=== PATIENT | female | born 1965 | race African-American/Black ===

== ENCOUNTER 2017-09-02 02:18 | Emergency (ER) | payer BC ==
[2017-09-02] MEDS ORDERED: Ibuprofen 800 MG TAB ONE (04:16)
--- NOTE | 2017-09-02 08:46 | RAD ---
LEFT HIP 2 VIEWS: Date: 09/02/17 HISTORY: Left hip pain. COMPARISON: None. FINDINGS: No displaced fracture or malalignment. Left obturator ring appears to be intact. Exam is limited by underpenetration. IMPRESSION: No displaced fracture or malalignment. POS: PASTORA
== END 2017-09-02 04:45 | disposition home or self-care (01) ==
LOC: ERS 02:18
DX: M25.552 Pain in left hip (principal); I10 Essential (primary) hypertension; F31.9 Bipolar disorder, unspecified; F41.9 Anxiety disorder, unspecified; Z79.82 Long term (current) use of aspirin; Z87.891 Personal history of nicotine dependence; Z79.899 Other long term (current) drug therapy

== ENCOUNTER 2018-08-23 19:14 | Observation (INO) | payer BC ==
[~2018-08-23 19:14] MED LIST: ISOVUE-370 76%-LOCM 1 ML ONE
[2018-08-23] MEDS ORDERED: Nitroglycerin 0.4 MG TAB (25 Tab Bottle) ONE (19:56)
[2018-08-23 20:05] LABS: #Eosinphils 0.1 thou/uL (0.0-0.7); #Lymphocytes 2.1 thou/uL (1.20-3.40); #Monocytes 0.6 thou/uL (0.11-0.59); #Neutrophils 7.4 thou/uL (1.40-6.50); %Basophils 0.4 % (0.0-1.0); %Eosinophils 1.4 % (0.0-10.0); %Lymphocytes 20.5 % (21.0-51.0); %Neutrophils 71.7 % (42.0-75.0); Hemoglobin 10.7 g/dL (12.0-16.0); Mean Corpuscular HGB CONC 31.2 g/dL (32.0-36.0); Mean Corpuscular Hemoglobin 23.9 pg (27.0-31.0); Mean Corpuscular Volume 76.5 fL (78.0-98.0); Mean Platelet Volume 8.2 fL (7.4-10.4); Platelet Count 403 thou/uL (130-400); RBC Distribution Width 15.8 % (11.5-14.5); Red Blood Cell (RBC) Count 4.48 mill/uL (4.20-5.40); White Blood Cell (WBC) Count 10.3 thou/uL (4.8-10.8)
[2018-08-23 20:29] LABS: ALT (SGPT) 13 U/L (8-55); AST (SGOT) 14 U/L (5-34); Albumin 3.9 g/dL (3.5-5.0); Alkaline Phosphatase 80 U/L (40-150); Anion Gap 9 mmol/L (10-20); BUN (Urea Nitrogen) 16 mg/dL (9.8-20.1); Bilirubin, Total 0.3 mg/dL (0.2-1.2); Calc. Creatinine Clearance 0 mL/min (70-130); Calcium 9.2 mg/dL (7.8-10.44); Carbon Dioxide 29 mmol/L (22-29); Chloride 105 mmol/L (98-107); Estimated GFR-MDRD 76; Globulin 3.8 g/dL (2.4-3.5); Glucose 95 mg/dL (70-105); Potassium 4.4 mmol/L (3.5-5.1); Protein, Total 7.7 g/dL (6.0-8.3); Sodium 139 mmol/L (136-145)
[2018-08-23 20:33] LABS: Troponin I Less than 0.010 ng/mL (< 0.028)
--- NOTE | 2018-08-23 20:49 | RAD ---
CHEST ONE VIEW: HISTORY: Shortness of breath x2 days. Chest pain. COMPARISON: None. FINDINGS: Normal cardiac silhouette. Pulmonary vessels are slightly prominent. Costophrenic angles are clear. No consolidation or mass. No pneumothorax or osseous abnormalities. IMPRESSION: No acute cardiopulmonary process. POS: PPP
--- NOTE | 2018-08-23 21:40 | CT ---
CTA THORAX UTILIZING IV CONTRAST AND 3D REFORMATTED IMAGING: INDICATIONS: Chest pain with shortness of breath. Elevated D-dimer. FINDINGS: The timing of the contrast bolus limits evaluation of the lobar and segmental branches of the pulmona ry arterial tree. No definite central pulmonary embolus is evident. No right heart dysfunction is g rossly evident. The visualized aspect of the aorta and great vessels appear within normal limits. There is a calcified granuloma within the right upper lobe. No confluent air space opacity is eviden t. No pleural effusion is demonstrated. No pneumothorax is noted. No enlarged lymph nodes are present. There is mild hypertrophy of both adrenal glands, left greater than right. There is a 3.1 cm cyst wi thin the left mid kidney that has intervally enlarged from a comparison in 2010. No acute osseous abnormality is evident. IMPRESSION: 1. No central pulmonary embolus demonstrated. Limitations of exam, as above. 2. Findings of prior granulomatous disease. 3. Interval enlargement of left mid renal cyst. Follow-up nonemergent renal ultrasound may be helpf ul to fully characterize this cystic abnormality. This is incompletely visualized on the current CT. 4. Slight hypertrophy of the adrenal glands, left greater than right. 5. Other chronic findings as above. POS: OSVALDO
[2018-08-23 23:43] VITALS: BMI 54.2
[2018-08-24] MEDS ORDERED: Acetaminophen 325 MG TAB PO PRN (00:03)
[2018-08-24 00:18] LABS: Troponin I Less than 0.010 ng/mL (< 0.028)
[2018-08-24 02:52] LABS: Troponin I Less than 0.010 ng/mL (< 0.028)
[2018-08-24] MEDS ORDERED: Ondansetron ODT 4 MG TAB PO PRN (04:01)
[2018-08-24] MEDS ORDERED: Ondansetron HCl/PF 4 MG/2 ML Vial IVP PRN (04:01)
[2018-08-24] MEDS: Furosemide 40 MG/4 ML VIAL SLOW IVP SCH ×2 (08:44→14:27)
[2018-08-24] MEDS ORDERED: Enoxaparin Sodium 40 MG/0.4 ML SYRINGE SC SCH (09:00)
[2018-08-24] MEDS ORDERED: Lisinopril 2.5 MG TAB PO SCH (09:00)
--- NOTE | 2018-08-24 09:59 | HP ---
CHIEF COMPLAINT: Shortness of breath. HISTORY OF PRESENT ILLNESS: This is a 53-year-old female with past medical history of hypertension and hepatitis C, presenting with a chief complaint of shortness of breath for 2 days. Per the patient, she has been having severe shortness of breath which is associated with some chest tightness and the patient states that with ambulation she gets shortness of breath, on lying down she gets shortness of breath. The patient states that she has been getting shortness of breath more constantly and even sometimes she gets shortness of breath from her sleep. The patient has to use 2 pillows to sleep and the patient says that this shortness of breath and chest tightness have worsened and that prompted the ED visit. Of note, the patient is a business operations specialist and patient states that she needs to take care of this shortness of breath so that she can be able to do her job. The patient admits to recent travel. Denies any recent sick contacts. The patient is a former smoker and drinker. The patient admits shortness of breath, bilateral lower extremity edema, chest tightness, but denies headaches, fever, palpitations, abdominal pain, and weakness. REVIEW OF SYSTEMS: Positive for chills, chest tightness, shortness of breath. PAST MEDICAL HISTORY: Hepatitis C, hypertension. FAMILY HISTORY: Reviewed and noncontributory. PAST SURGICAL HISTORY: Liver biopsy, hysterectomy. PSYCHIATRIC HISTORY: The patient has anxiety, bipolar and depression. SOCIAL HISTORY: The patient is a business operations specialist. The patient is a former smoker, quit more than 10 years ago. The patient drinks occasionally. The patient denies any illicit drug use. ALLERGIES: No known drug allergies. CURRENT MEDICATIONS: Aspirin, hydrochlorothiazide, losartan and Lasix 20 mg. PHYSICAL EXAMINATION: VITAL SIGNS: Blood pressure is 214/90, pulse of 87, respiratory rate of 17, temperature of 98.3, O2 sat of 99. GENERAL: The patient is a morbidly obese female lying in bed, does not appear to be in any acute distress. HEENT: Normocephalic, atraumatic. Pupils are equally round and reactive to light. Extraocular movements are intact. No scleral icterus. No conjunctival pallor. Mucous membranes are moist. NECK: Large neck circumference. Trachea is midline. No meningeal signs. LUNGS: Clear to auscultation bilaterally. No wheezing, no rales, no rhonchi is appreciated. CARDIOVASCULAR: Positive S1 and S2, regular rate and rhythm. No murmurs, no gallops or rubs appreciated. ABDOMEN: Obese abdomen, soft, nontender, nondistended, no masses. Positive bowel sounds in all quadrants. EXTREMITIES: The patient has 5/5 upper extremity strength, good pulses at the radial pulses. Lower extremities; the patient has 2+ edema noted. Has 5/5 upper extremity strength and good pulses. NEUROLOGIC: Cranial nerves II-XII grossly intact. No neurologic deficits noted. SKIN: Warm, dry and intact. PSYCHIATRIC: Normal affect, alert and oriented x3. EKG; sinus rhythm with rate of 94. Chest x-ray was negative and chest CT was also negative for emboli. ED COURSE: The patient received nitroglycerin and aspirin. LABORATORY DATA: WBC 10.3, hemoglobin 10.7, hematocrit is 34.3, platelet is 403. D-dimer was 0.68. Sodium 139, potassium 4.4, chloride 105, carbon dioxide of 29, anion gap of 9, creatinine of 0.94, glucose 95, AST is 14, ALT is 13. BNP is 16.7. Troponin is negative x3. ASSESSMENT AND PLAN: 1. This is a 53-year-old female being admitted for shortness of breath due to newly onset congestive heart failure. At this point, we have ordered for cardiac rehab. We are going to treat the patient for congestive heart failure. We have ordered for echo with cardiology on consult. We will follow up with their recommendations. 2. Hypertension. Continue the patient on her home medications and monitor blood pressures closely. 3. Hepatitis C, currently stable. We will monitor the patient. 4. Deep venous thrombosis and gastrointestinal prophylaxis. [facility]
[2018-08-24 16:10] VITALS: BP 130/82; TEMP 98.4
--- NOTE | 2018-08-24 16:50 | NM ---
RADIONUCLIDE STRESS ONLEY MYOCARDIAL PERFUSION SCAN WITH CT ATTENUATION CORRECTION AND SPECT IMAGING WITH LEFT VENTRICULAR WALL MOTION EVALUATION AND EJECTION FRACTION: HISTORY: Chest pain FINDINGS: Adenosine protocol. There is homogeneous uptake of radiotracer throughout the left ventricular myocar dium on the stress images. No focal perfusion defect. QGS analysis of gated SPECT images shows no focal wall motion abnormalities. Ejection fraction estima saúl at 68%. IMPRESSION: 1. Normal myocardial perfusion scan. 2. Normal LVEF. POS: PASTORA
--- NOTE | 2018-08-24 17:40 | PDOC.EVN ---
Event Note - Event Note Event Note: I have examined, discussed and reviewed all relevant hx, labs, x-rays and stress test results with Radha HUANG. Agree with discharge plans to home. No new recommendations for medical therapy or adjustments. Please see dictated discharge summary for details.
--- NOTE | 2018-08-25 01:51 | DIS ---
DATE OF ADMISSION: 08/23/2018 DATE OF DISCHARGE: 08/24/2018 PRIMARY CARE PHYSICIAN: Dr. Freire. CONSULTATIONS: None. PROCEDURES: Stress test, Cardiolite with nuclear med, negative with an EF of 68 %. Echo with EF of 55% to 60%, mild mitral valve and tricuspid regurgitation. A CTA of the chest, which did not demonstrate any PE. Left interval enlargement of a mid-renal cyst recommend the renal ultrasound to better clarify on an outpatient basis. Patient also had a chest x-ray with no acute findings. REVIEW OF SYSTEMS: Patient had some chest tightness and shortness of breath on admission but reports it has resolved. Denies any complaints during my exam this morning. PHYSICAL EXAMINATION GENERAL: Patient is lying in bed, nontoxic and in no acute distress. HEENT: Normocephalic, atraumatic. Pupils are equally round and reactive to light. Extraocular movements are intact. Mucous membranes are moist. NECK: Large neck circumference. Trachea is midline. LUNGS: Clear to auscultation bilaterally. No wheezing, rales, rhonchi. CARDIOVASCULAR: Positive S1, S2. Regular rate and rhythm. No murmurs, gallops , or rubs. ABDOMEN: Obese abdomen, soft, nontender, nondistended, no masses. Positive bowel sounds in all quadrants. EXTREMITIES: Patient had 5/5 upper extremity strength. Good pulses on the radial pulses. Lower extremities: Patient has 2+ edema noted to BLE , has 5/5 lower extremity strength and good pulses. SKIN: Warm, dry, and intact. PSYCHIATRIC: Normal affect. Alert and oriented x3. EKG sinus rhythm with a rate of 94. HOSPITAL COURSE: A 53-year-old female, nontoxic appearing. Reports shortness of breath x2 days with some chest tightness which prompted her presentation to the ER. Reports shortness of breath lying down and also reports mild shortness of breath with exertion. Reports mild bilateral pedal edema and is worse in the evenings when she gets off work. 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 O2 sats are 100% on room air while hospitalized. Patient is able to ambulate here without assistance. Denies any dizziness, shortness of breath or chest pain while hospitalized Patient is feeling better and was given her usual Lasix dose this morning. In light of her stress test findings and unremarkable lab work, case discussed with Dr. Day and agrees with plan for patient to be discharged home. Patient was instructed to follow up with Dr. Freire in 1 week. DISCHARGE MEDICATIONS: Continue aspirin 81 mg p.o. daily, Lasix 20 mg p.o. q.p.m., losartan/hydrochlorothiazide 1 tablet p.o. q.a.m., potassium chloride 10 mEq p.o. q.p.m. CONDITION: Stable. DISPOSITION: To home. REFERRAL: Dr. Freire within 1 week. [facility]
--- NOTE | 2018-08-29 13:25 | EKG ---
Test Reason : Blood Pressure : / mmHG Vent. Rate : 094 BPM Atrial Rate : 094 BPM P-R Int : 136 ms QRS Dur : 072 ms QT Int : 350 ms P-R-T Axes : 040 018 018 degrees QTc Int : 437 ms Normal sinus rhythm Cannot rule out Anterior infarct , age undetermined Abnormal ECG Confirmed by DIA DICKINSON ([id number]), deputy editor in chief HEIDY RAI ([id number]) on 08/29/2018 1:25:15 PM Referred By: Confirmed By:DIA DICKINSON
== END 2018-08-24 18:27 | disposition home or self-care (01) ==
LOC: ERS 19:14 → 2SW 23:23
PROVIDERS: ADMIT Internal Medicine; ATTEND Internal Medicine
DX: I11.0 Hypertensive heart disease with heart failure (principal); I50.9 Heart failure, unspecified; B19.20 Unspecified viral hepatitis C without hepatic coma; Z79.82 Long term (current) use of aspirin; Z79.899 Other long term (current) drug therapy
CPT/HCPCS: 36415; 71045; 71275; 78452; 80053; 83880; 84484; 85025; 85379; 93005; 93017; 93306; 96372; 96374; 96376; A9500; G0378; J0153; J1650; J1940; J7620

== ENCOUNTER 2019-05-28 08:42 | Outpatient (CLI) | payer BC, OTHER ==
--- NOTE | 2019-05-28 09:24 | MMO ---
Bilateral MAMMO Bilat Screen [facility]. CLINICAL HISTORY: Patient is 53 years old and is seen for screening. The patient has no family history of breast cancer. The patient has no personal history of cancer. The patient has a history of right Excisional Biopsy in ? - benign. VIEWS: The views performed were: bilateral craniocaudal with tomosynthesis and bilateral mediolateral oblique with tomosynthesis. FILMS COMPARED: The present examination has been compared to prior imaging studies performed at [facility] on 03/21/2008 and 03/04/2016. MAMMOGRAM FINDINGS: There are scattered fibroglandular densities. There are no suspicious masses, suspicious calcifications, or new areas of architectural distortion. IMPRESSION: THERE IS NO MAMMOGRAPHIC EVIDENCE OF MALIGNANCY. A ROUTINE FOLLOW-UP MAMMOGRAM IN 1 YEAR IS RECOMMENDED. THE RESULTS OF THIS EXAM WERE SENT TO THE PATIENT. ACR BI-RADS Category 1 - Negative MAMMOGRAPHY NOTE: 1. A negative mammogram report should not delay a biopsy if a dominant of clinically suspicious mass is present. 2. Approximately 10% to 15% of breast cancers are not detected by mammography. 3. Adenosis and dense breasts may obscure an underlying neoplasm. Reported by: KT ESTRADA MD Electonically Signed: [id number]
== END 2019-05-28 08:43 | disposition home or self-care (01) ==
LOC: BICMAMMO 08:42
PROVIDERS: ATTEND Family Medicine
DX: Z12.31 Encounter for screening mammogram for malignant neoplasm of breast (principal)
CPT/HCPCS: 77063; 77067

== ENCOUNTER 2020-08-16 16:38 | Outpatient (CLI) | payer BC ==
--- NOTE | 2020-08-17 08:08 | MMO ---
Bilateral MAMMO Bilat Screen [facility]. CLINICAL HISTORY: Patient is 55 years old and is seen for screening. The patient has no family history of breast cancer. The patient has no personal history of cancer. The patient has a history of right Excisional Biopsy in ? - benign. VIEWS: The views performed were: bilateral craniocaudal with tomosynthesis and bilateral mediolateral oblique with tomosynthesis. FILMS COMPARED: The present examination has been compared to prior imaging studies performed at [facility] on 03/21/2008, 03/04/2016 and 05/28/2019. This study has been interpreted with the assistance of computer-aided detection. MAMMOGRAM FINDINGS: There are scattered fibroglandular densities. There are stable benign appearing calcifications seen in both breasts. There are no suspicious masses, suspicious calcifications, or new areas of architectural distortion. IMPRESSION: THERE IS NO MAMMOGRAPHIC EVIDENCE OF MALIGNANCY. A ROUTINE FOLLOW-UP MAMMOGRAM IN 1 YEAR IS RECOMMENDED. THE RESULTS OF THIS EXAM WERE SENT TO THE PATIENT. ACR BI-RADS Category 2 - Benign finding MAMMOGRAPHY NOTE: 1. A negative mammogram report should not delay a biopsy if a dominant of clinically suspicious mass is present. 2. Approximately 10% to 15% of breast cancers are not detected by mammography. 3. Adenosis and dense breasts may obscure an underlying neoplasm. Reported by: DO ESTEBAN MD Electonically Signed: [id number]
== END 2020-08-16 16:39 | disposition home or self-care (01) ==
LOC: BICMAMMO 16:38
PROVIDERS: ATTEND Family Medicine
DX: Z12.31 Encounter for screening mammogram for malignant neoplasm of breast (principal); Z91.89 Other specified personal risk factors, not elsewhere classified
CPT/HCPCS: 77063; 77067

== ENCOUNTER 2021-10-12 09:14 | Outpatient (CLI) | payer BC | END 2021-10-12 09:15 | disposition home or self-care (01) | LOC: BICMAMMO 09:14 | PROVIDERS: ATTEND Family Medicine | DX: Z12.31 Encounter for screening mammogram for malignant neoplasm of breast (principal) | CPT/HCPCS: 77063; 77067 ==

== ENCOUNTER 2023-05-15 10:46 | Outpatient (CLI) | payer BC | END 2023-05-15 10:47 | disposition home or self-care (01) | LOC: BICMAMMO 10:46 | PROVIDERS: ATTEND Family Medicine | DX: Z12.31 Encounter for screening mammogram for malignant neoplasm of breast (principal) | CPT/HCPCS: 77063; 77067 ==